=== PATIENT | male | born 1975 | race Two or more races ===

== ENCOUNTER 2018-08-13 15:18 | Inpatient (IN) | payer OTHER ==
[2018-08-13 17:32] VITALS: BMI 27.1
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
[2018-08-13] MEDS ORDERED: MAGNESIUM CITRATE 300 ML BOTTLE PO PRN (20:21)
[2018-08-13] MEDS ORDERED: IBUPROFEN 400 MG TABLET (FP) PO PRN (20:21)
[2018-08-13] MEDS ORDERED: MAG HYDROX/AL HYDROX/SIMETH 30 ML UNIT-DOSE CUP PO PRN (20:21)
[2018-08-13] MEDS ORDERED: chlordiazePOXIDE HCL 25 MG CAPSULE PO ONE (20:21)
[2018-08-13] MEDS ORDERED: MAGNESIUM HYDROX 2400MG/30ML ORAL SUSPENSION 30 ML CUP PO PRN (20:21)
[2018-08-13] MEDS ORDERED: NICOTINE POLACRILEX 2 MG GUM BUC PRN (20:21)
[2018-08-13] MEDS ORDERED: MENTHOL/PHENOL 1 EACH UD MM PRN (20:21)
[2018-08-13] MEDS ORDERED: ACETAMINOPHEN 325 MG TABLET (FP) PO PRN (20:21)
[2018-08-13] MEDS ORDERED: LOPERAMIDE HCL 2 MG CAPSULE PO PRN (20:21)
[2018-08-13] MEDS ORDERED: THIAMINE HCL 100 MG TABLET (FP) PO SCH (22:00)
[2018-08-13] MEDS ORDERED: MELATONIN 5 MG TABLETS PO PRN (22:00)
[2018-08-13] MEDS: BACITRACIN 0.9 GM PACKET TP SCH (22:13)
[2018-08-13] MEDS: chlordiazePOXIDE HCL 25 MG CAPSULE PO SCH (22:14)
[2018-08-13 23:16] LABS: URINE APPEARANCE CLEAR; URINE BILIRUBIN NEGATIVE (<2.0 mg/dL); URINE COLOR YELLOW; URINE GLUCOSE (UA) NEGATIVE (NEGATIVE); URINE KETONE TRACE (NEGATIVE); URINE LEUK ESTERASE NEGATIVE (NEGATIVE); URINE NITRITE NEGATIVE (NEGATIVE); URINE PROTEIN 1+ (NEGATIVE)
[2018-08-13 23:21] LABS: EPI CELLS RARE /HPF (FEW); URINE HYALINE CAST 1 /lpf; URINE MUCUS FEW
[2018-08-14] MEDS: chlordiazePOXIDE HCL 25 MG CAPSULE PO PRN ×2 (03:21→12:20)
[2018-08-14] MEDS ORDERED: hydrOXYzine PAMOATE 50 MG CAPSULE (FP) PO ONE (03:29)
[2018-08-14] MEDS: chlordiazePOXIDE HCL 25 MG CAPSULE PO SCH ×2 (06:00→10:06)
[2018-08-14] MEDS ORDERED: PRENATAL VITAMINS W/ FOLIC ACID TABLET (FP) PO SCH (10:00)
[2018-08-14] MEDS: BACITRACIN 0.9 GM PACKET TP SCH (10:07)
[2018-08-14] MEDS ORDERED: hydrOXYzine HCL 25 MG TABLET (FP) PO PRN (10:19)
[2018-08-14 10:40] LABS: HEMATOCRIT 47.6 % (35.4-49); HEMOGLOBIN 15.7 GM/dL (11.7-16.9); MCHC 32.9 g/dl (32.0-35.9); MEAN CELL VOLUME 88.2 fl (80-96); MEAN PLT VOLUME 7.3 fl (7.5-11.1); PLATELET COUNT 250 K/MM3 (134-434); RBC 5.39 M/mm3 (4.00-5.60); RDW 13.6 % (11.9-15.9); WHITE BLOOD COUNT 8.8 K/mm3 (4.0-10.0)
[2018-08-14 10:41] LABS: ALBUMIN 4.3 g/dl (3.4-5.0); ALK PHOS 81 U/L (45-117); ANION GAP 14 MMOL/L (8-16); BILIRUBIN,TOTAL 0.7 mg/dL (0.2-1); BLOOD UREA NITROGEN 9 mg/dL (7-18); CALCIUM 8.8 mg/dL (8.5-10.1); CHLORIDE 97 mmol/L (98-107); CO2 27 mmol/L (21-32); CREATININE 0.7 mg/dL (0.55-1.3); GLUCOSE,RANDOM 90 mg/dL (74-106); POTASSIUM 3.4 mmol/L (3.5-5.1); SGOT/AST 26 U/L (15-37); SGPT/ALT 33 U/L (13-61); SODIUM 138 mmol/L (136-145); TOT PROT 7.8 g/dl (6.4-8.2)
--- NOTE | 2018-08-14 12:00 | EKG ---
Test Reason : Blood Pressure : / mmHG Vent. Rate : 124 BPM Atrial Rate : 124 BPM P-R Int : 146 ms QRS Dur : 098 ms QT Int : 312 ms P-R-T Axes : 072 017 059 degrees QTc Int : 448 ms SINUS TACHYCARDIA OTHERWISE NORMAL ECG NO PREVIOUS ECGS AVAILABLE Confirmed by MAGUI BELTRAN MD ([id number]) on 08/14/2018 12:00:01 PM Referred By: Confirmed By:MAGUI BELTRAN MD
[2018-08-14 13:39] VITALS: BP 138/82; TEMP 98.8
[2018-08-14 14:10] VITALS: PULSE 112
--- NOTE | 2018-08-14 15:52 | DS ---
[facility] Detox Discharge Summary Admission Date: 08/13/18 Discharge Date: 08/14/18 - History Present History: Alcohol Dependence Additional Comments: Patient decided to leave AMA despite encouragement from staff to complete detox. Patient instructed to call 911 if feeling sick or any withdrawal symptoms and to see his PCP within 3 days. Patient is A, A, Ox3, in nad, ambulatory. Pertinent Past History: Alcohol dependence Nicotine dependence - Physical Exam Results Vital Signs: Vital Signs Temperature 98.8 F 08/14/18 13:38 Pulse Rate 112 H 08/14/18 14:00 Respiratory Rate 20 08/14/18 13:38 Blood Pressure 138/82 08/14/18 13:38 O2 Sat by Pulse Oximetry (%) Pertinent Admission Physical Exam Findings: Withdrawal symptoms Laboratory Tests 08/13/18 08/14/18 08/14/18 22:00 07:00 07:00 WBC 8.8 RBC 5.39 Hgb 15.7 Hct 47.6 MCV 88.2 MCH 29.0 MCHC 32.9 RDW 13.6 D Plt Count 250 D MPV 7.3 L Sodium 138 Potassium 3.4 L Chloride 97 L Carbon Dioxide 27 Anion Gap 14 BUN 9 Creatinine 0.7 Creat Clearance w eGFR > 60 Random Glucose 90 Calcium 8.8 Total Bilirubin 0.7 AST 26 ALT 33 Alkaline Phosphatase 81 Total Protein 7.8 Albumin 4.3 Urine Color Yellow Urine Appearance Clear Urine pH 7.0 D Ur Specific [place] 1.019 Urine Protein 1+ H Urine Glucose (UA) Negative Urine Ketones Trace H Urine Blood Negative Urine Nitrite Negative Urine Bilirubin Negative Urine Urobilinogen 2.0 Ur Leukocyte Esterase Negative Urine WBC (Auto) 1 Urine RBC (Auto) <1 Ur Epithelial Cells Rare Hyaline Casts 1 Urine Mucus Few RPR Titer 08/14/18 07:00 WBC RBC Hgb Hct MCV MCH MCHC RDW Plt Count MPV Sodium Potassium Chloride Carbon Dioxide Anion Gap BUN Creatinine Creat Clearance w eGFR Random Glucose Calcium Total Bilirubin AST ALT Alkaline Phosphatase Total Protein Albumin Urine Color Urine Appearance Urine pH Ur Specific [place] Urine Protein Urine Glucose (UA) Urine Ketones Urine Blood Urine Nitrite Urine Bilirubin Urine Urobilinogen Ur Leukocyte Esterase Urine WBC (Auto) Urine RBC (Auto) Ur Epithelial Cells Hyaline Casts Urine Mucus RPR Titer Nonreactive Labs reviewed: patient instructed to follow up with PCP within 3 days and for abnormal lab results - Medication Discharge Medications: Ambulatory Orders NK [No Known Home Medication] 08/13/18 - Diagnosis (1) Alcohol dependence with uncomplicated withdrawal Status: Acute (2) Nicotine dependence Status: Chronic - AMA Did Patient Leave Against Medical Advice: Yes (Instructed to call 911 if any withdrawal symptoms)
[2018-08-14] MEDS ORDERED: chlordiazePOXIDE HCL 25 MG CAPSULE PO SCH (23:00)
[2018-08-15] MEDS ORDERED: chlordiazePOXIDE 5 MG CAPSULE PO SCH (23:00)
[2018-08-16] MEDS ORDERED: chlordiazePOXIDE HCL 10 MG CAPSULE PO SCH (23:00)
== END 2018-08-14 14:02 | disposition left against medical advice (07) | DRG 770 ==
LOC: YASAS 15:18 → Y3N 19:18
PROC: HZ2ZZZZ Detoxification Services for Substance Abuse Treatment (ICD-10-PCS; principal; 2018-08-13)
DX: F10.230 Alcohol dependence with withdrawal, uncomplicated (principal); F17.210 Nicotine dependence, cigarettes, uncomplicated; F32.9 Major depressive disorder, single episode, unspecified; D55.9 Anemia due to enzyme disorder, unspecified; G47.00 Insomnia, unspecified; S00.81XA Abrasion of other part of head, initial encounter; S40.812A Abrasion of left upper arm, initial encounter; X58.XXXA Exposure to other specified factors, initial encounter; Y93.9 Activity, unspecified; Y92.89 Other specified places as the place of occurrence of the external cause; Y99.8 Other external cause status
CPT/HCPCS: 36415; 80053; 81003; 81015; 85027; 86593; 93005; 93010